=== PATIENT | male | born 1995 | race Caucasian/White ===

== ENCOUNTER 2021-10-18 15:45 | Emergency (ER) | payer SELFPAY ==
[~2021-10-18] VITALS: Ht 175.3 cm; Wt 90.7 kg
[2021-10-18 16:10] VITALS: BP 139/94
[2021-10-18] MEDS ORDERED: IBUPROFEN 600 MG TABLET PO ONE (18:00)
[2021-10-18] MEDS ORDERED: IBUPROFEN 600 MG TABLET ONE (18:11)
[2021-10-18] MEDS ORDERED: IBUP-1955 PO (19:10)
--- NOTE | 2021-10-18 19:40 | NUR ---
Patient discharged to home in stable condition. Written and verbal after care instructions given. Patient verbalizes understanding of instruction.
== END 2021-10-18 19:41 | disposition home or self-care (01) ==
LOC: ER 16:10
DX: S05.12XA Contusion of eyeball and orbital tissues, left eye, initial encounter (principal); Z60.2 Problems related to living alone; W18.09XA Striking against other object with subsequent fall, initial encounter; Y93.89 Activity, other specified; Y92.89 Other specified places as the place of occurrence of the external cause; Y99.8 Other external cause status
CPT/HCPCS: 70200-TC